=== PATIENT | female | born 1975 | race Caucasian/White ===

== ENCOUNTER 2024-08-07 07:38 | Day surgery (SDC) | payer OTHER ==
[~2024-08-07] VITALS: Ht 160 cm; Wt 75.0 kg
[2024-08-07] MEDS: LIDOCAINE 3.5 % 1ML OPHTH TOPICAL GEL OU ONE (07:00)
[2024-08-07] MEDS: OFLOXACIN 0.3 % (OCUFLOX) OPTH SOL 5ML OD ONE (07:00)
[~2024-08-07 07:38] MED LIST: AMPH1CAP14 PO; AMPH1CAP5 PO; B-12100010 PO; BUPR150T12 PO; OCUV1CHW PO; PHENYLEPHRINE 10% OPHTH SOL 5ML OD PRN; SERT150C PO; THERTAB52 PO; TIRZ5VIA SQ; [UNRECOGNIZED DRUG - CODE] PO
[2024-08-07] MEDS ORDERED: XANA0.5T PO (08:18)
[2024-08-07] MEDS: PHENYLEPHRINE 2.5% OPHTH SOL 2ML OD SCH (08:19)
[2024-08-07] MEDS: TROPICAMIDE 1% OPHTH SOLN 15ML OD SCH (08:19)
[2024-08-07] MEDS: CYCLOPENTOLATE 1% OPHTH SOLN 2ML BTL OD SCH (08:19)
[2024-08-07] MEDS ORDERED: MIDAZOLAM INJ 2MG/2ML VIAL As Ordered ONE (08:55)
[2024-08-07] MEDS ORDERED: fentaNYL 100 MCG/2 ML INJECTION As Ordered ONE (08:55)
[2024-08-07] MEDS: LIDOCAINE 1% SDV 5ML VIAL As Ordered ONE (09:21)
[2024-08-07] MEDS: CEFUROXIME 1MG/0.1ML INTRACAMERAL INJ As Ordered ONE (09:21)
[2024-08-07] MEDS: BSS IRRIG/VANCO(10MG)/TOBRA(5MG)/EPINEPH(1:1000-0.5CC)500ML BAG-ORONLY As Ordered ONE (09:21)
[2024-08-07 09:37] VITALS: BP 129/81; TEMP 97.2; O2SAT 100
== END 2024-08-07 09:50 | disposition home or self-care (01) ==
LOC: M SDC 07:38
PROVIDERS: ATTEND Ophthalmology
DX: H25.11 Age-related nuclear cataract, right eye (principal); F41.9 Anxiety disorder, unspecified; F90.9 Attention-deficit hyperactivity disorder, unspecified type; Z79.899 Other long term (current) drug therapy; Z87.891 Personal history of nicotine dependence
CPT/HCPCS: 66984; 81025; 92015; J0697; J2250; J3010; V2788

== ENCOUNTER 2025-04-30 07:44 | Day surgery (SDC) | payer OTHER ==
[~2025-04-30] VITALS: Ht 157.5 cm; Wt 67.1 kg
[~2025-04-30 07:44] MED LIST changes: +CVS-161 PO; -PHENYLEPHRINE 10% OPHTH SOL 5ML OD PRN; +PHENYLEPHRINE 10% OPHTH SOL 5ML OS PRN; +XANA0.5T PO
[2025-04-30] MEDS: LIDOCAINE 3.5% 1 ML OPHTH TOPICAL GEL OU ONE (08:32)
[2025-04-30] MEDS: OFLOXACIN 0.3 % (OCUFLOX) OPTH SOL 5ML OS ONE (08:32)
[2025-04-30] MEDS: PHENYLEPHRINE 2.5% OPHTH SOL 2ML OS SCH (08:32)
[2025-04-30] MEDS: TROPICAMIDE 1% OPHTH SOLN 15ML OS SCH (08:32)
[2025-04-30] MEDS: CYCLOPENTOLATE 1% OPHTH SOLN 2 ML BTL OS SCH (08:32)
[2025-04-30] MEDS ORDERED: MIDAZOLAM INJ 2 MG/2 ML VIAL As Ordered ONE (09:07)
[2025-04-30] MEDS: LIDOCAINE 1% SDV 5 ML VIAL As Ordered ONE (09:08)
[2025-04-30] MEDS: BSS IRRIG/VANCO(10MG)/TOBRA(5MG)/EPINEPH(1:1000-0.5CC)500ML BAG-ORONLY As Ordered ONE (09:09)
[2025-04-30] MEDS: CEFUROXIME 1 MG/0.1 ML INTRACAMERAL INJ As Ordered ONE (09:09)
[2025-04-30 09:26] VITALS: BP 136/84; TEMP 96.9; O2SAT 100
== END 2025-04-30 09:43 | disposition home or self-care (01) ==
LOC: M SDC 07:44
PROVIDERS: ATTEND Ophthalmology
DX: H25.12 Age-related nuclear cataract, left eye (principal); Z79.899 Other long term (current) drug therapy; F41.9 Anxiety disorder, unspecified; F90.9 Attention-deficit hyperactivity disorder, unspecified type; Z98.41 Cataract extraction status, right eye
CPT/HCPCS: 66984; 92015; J0697; J2250; J3010; V2788